=== PATIENT | female | born 2000 | race Caucasian/White ===

== ENCOUNTER 2021-06-02 04:39 | Emergency (ER) | payer OTHER ==
[~2021-06-02] VITALS: Ht 160 cm; Wt 63.6 kg
[2021-06-02 04:50] VITALS: TEMP 98.4
[2021-06-02 05:52] LABS: COLLECTION METHOD CLEAN CATCH
[2021-06-02 06:04] LABS: MUCOUS Present (NOT PRESENT); PH 6 (5-8); URINE APPEARANCE Hazy (CLEAR/HAZY); URINE BACTERIA None Seen (NONE SEEN); URINE BILIRUBIN Negative (NEGATIVE); URINE BLOOD 1+ (NEGATIVE); URINE COLOR Yellow (YELLOW); URINE GLUCOSE Negative (NEGATIVE); URINE KETONE Negative (NEGATIVE); URINE LEUKOCYTE ESTERASE 2+ (NEGATIVE); URINE NITRATE Negative (NEGATIVE); URINE PROTEIN(semi-quant) Negative (NEGATIVE); URINE RBC 0-2 /hpf (0-2); URINE UROBILINOGEN Negative (NEGATIVE)
[2021-06-02] MEDS ORDERED: DOXYCYCLINE 10100 MG PO ×2 (06:05→06:27)
[2021-06-02 06:22] VITALS: BP 112/77; PULSE 87
[2021-06-02] MEDS ORDERED: NORCO 325 MG-51 TAB PO (06:26)
== END 2021-06-02 06:35 | disposition home or self-care (01) ==
LOC: COL.ER 04:39
PROVIDERS: Emergency Medicine
DX: N73.9 Female pelvic inflammatory disease, unspecified (principal); Z32.02 Encounter for pregnancy test, result negative
CPT/HCPCS: J0696

== ENCOUNTER 2021-06-04 10:28 | Emergency (ER) | payer OTHER ==
[~2021-06-04] VITALS: Ht 160 cm; Wt 63.6 kg
[~2021-06-04 10:28] MED LIST: DOXYCYCLINE 10100 MG PO; NORCO 325 MG-51 TAB PO
[2021-06-04] MEDS ORDERED: VALTREX1 GM PO (13:05)
[2021-06-04 16:24] VITALS: BP 121/68; PULSE 89; TEMP 98.3
== END 2021-06-04 16:23 | disposition home or self-care (01) ==
LOC: COL.ER 10:28
PROVIDERS: Emergency Medicine
DX: B00.9 Herpesviral infection, unspecified (principal); N73.9 Female pelvic inflammatory disease, unspecified
CPT/HCPCS: J1885